=== PATIENT | female | born 1965 ===

== ENCOUNTER 2021-11-12 17:37 | Emergency (ER) | payer SELFPAY ==
--- NOTE | 2021-11-12 20:31 | Emergency Department Report ---
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 She states that she has been having knee swelling and has pain to the posterior knee. She denies any fall or injury. she denies ever having this in the past. States her pain is worse with ambulation. She denies any calf pain. No past medical history. No allergies to medications. She was given morphine and Zofran by EMS. - Related Data Previous Rx's Medication Instructions Recorded Last Taken Type Meloxicam [Mobic] 7.5 mg PO QDAY #14 tablet 11/12/21 Unknown Rx traMADoL [Ultram 50 MG tab] 50 mg PO Q6HR PRN #12 tablet 11/12/21 Unknown Rx Allergies Allergy/AdvReac Type Severity Reaction Status Date / Time No Known Allergies Allergy Unverified 11/12/21 17:43 ED Review of Systems ROS: Stated complaint: KNEE PAIN Other details as noted in HPI Comment: All other systems reviewed and negative ED Past Medical Hx - Medications Home Medications: Home Medications Medication Instructions Recorded Confirmed Last Taken Type Meloxicam [Mobic] 7.5 mg PO QDAY #14 tablet 11/12/21 Unknown Rx traMADoL [Ultram 50 MG tab] 50 mg PO Q6HR PRN #12 tablet 11/12/21 Unknown Rx ED Physical Exam - General Limitations: Language Barrier General appearance: alert, in no apparent distress - Head Head exam: Present: atraumatic, normocephalic - Eye Eye exam: Present: normal appearance - ENT ENT exam: Present: mucous membranes moist - Extremities Exam Extremities exam: Present: other (ttp to the left anterior and posterior knee, mild left calf ttp, mild edema to the left knee, FROM, neurovascularly intact, no skin changes) - Neurological Exam Neurological exam: Present: alert, oriented X3 - Psychiatric Psychiatric exam: Present: normal affect, normal mood - Skin Skin exam: Present: warm, dry, intact ED Course Vital Signs 11/12/21 21:41 Temperature 97.8 F Pulse Rate 74 Respiratory 96 H Rate Blood Pressure 117/66 [Left] ED Medical Decision Making - Radiology Data Radiology results: report reviewed Ordering Physician: EDGARDO AREVALO Date of Service: 11/12/21 Procedure(s): XR knee 3V LT Accession Number(s): [id number] cc: EDGARDO AREVALO Fluoro Time In Minutes: XR knee 3V LT INDICATION / CLINICAL INFORMATION: left knee pain and swelling. COMPARISON: None available. FINDINGS: BONES/JOINT(S): No acute fracture or subluxation. Mild tricompartmental osteoarthritis. SOFT TISSUES: No significant abnormality. ADDITIONAL FINDINGS: None. Signer Name: Mynor Turner MD Signed: 11/12/2021 8:38 PM Workstation Name: [id number] Transcribed By: KORY Dictated By: Mynor Turner MD Electronically Authenticated By: Mynor Turner MD Signed Date/Time: 11/12/212037 DD/ 37 TD/TT: Ordering Physician: EDGARDO AREVALO Date of Service: 11/12/21 Procedure(s): VL venous duplex LE LT Accession Number(s): [id number] cc: EDGARDO AREVALO DUPLEX DOPPLER LOWER EXTREMITY VEINS, LEFT INDICATION / CLINICAL INFORMATION: left posterior knee pain, left leg swelling. TECHNIQUE: Duplex doppler imaging was performed through the veins of the left lower extremity using venous compression and other maneuvers. COMPARISON: None available. FINDINGS: LEFT COMMON FEMORAL VEIN: Negative. LEFT FEMORAL VEIN: Negative. LEFT POPLITEAL VEIN: Negative. LEFT CALF VEINS: Negative. ADDITIONAL FINDINGS: None. IMPRESSION: 1. No sonographic evidence for DVT in the left lower extremity. Signer Name: Mynor Turner MD Signed: 11/12/2021 9:41 PM Workstation Name: [id number] Transcribed By: KORY Dictated By: Mynor Turner MD Electronically Authenticated By: Mynor Turner MD Signed Date/Time: 11/12/212140 DD/ 40 TD/TT: - Medical Decision Making Afghan interpretation by Glen, information systems security analyst who is present during entire patient encounter Patient is a 56-year-old female presents emergency room complaints of left knee pain that began 3 days ago. She states that she has been having knee swelling and has pain to the posterior knee. She denies any fall or injury. she denies ever having this in the past. States her pain is worse with ambulation. She denies any calf pain. No past medical history. No allergies to medications. She was given morphine and Zofran by EMS. on exam: ttp to the left anterior and posterior knee, mild left calf ttp, mild edema to the left knee, FROM, neurovascularly intact, no skin changes. No signs of cellulitis, septic joint or infection. No signs of acute arterial occlusion, patient has 2+ distal pulses. x-ray left knee BONES/JOINT(S): No acute fracture or subluxation. Mild tricompartmental osteoarthritis. SOFT TISSUES: No significant abnormality. ADDITIONAL FINDINGS: None. Doppler lower extremity 1. No sonographic evidence for DVT in the left lower extremity. Discussed all results with patient answer questions. Patient given prescription for medication. Advised patient Please take medication as prescribed as needed. Follow-up with a orthopedic doctor. Follow-up with your primary care doctor. Return to emergency room for any new or worsening symptoms. Critical care attestation.: If time is entered above; I have spent that time in minutes in the direct care of this critically ill patient, excluding procedure time. ED Disposition Clinical Impression: Knee swelling Knee pain Qualifiers: Chronicity: acute Laterality: left Qualified Code(s): M25.562 - Pain in left knee Disposition: 01 HOME / SELF CARE / HOMELESS Is pt being admited?: No Does the pt Need Aspirin: No Condition: Stable Instructions: Acute Knee Pain, Adult, [id number] Additional Instructions: Please take medication as prescribed as needed. Follow-up with a orthopedic doctor. Follow-up with your primary care doctor. Return to emergency room for any new or worsening symptoms. Prescriptions: Meloxicam [Mobic] 7.5 mg PO QDAY #14 tablet traMADoL [Ultram 50 MG tab] 50 mg PO Q6HR PRN #12 tablet PRN Reason: Pain , Severe (7-10) Referrals: PRIMARY ADA, [Primary Care Provider] - 3-5 Days DAYDAY DUNCAN MD [Staff Physician] - 3-5 Days Time of Disposition: 21:49 Print Language: MICRONESIAN
--- NOTE | 2021-11-12 20:43 | XRay Report ---
XR knee 3V LT INDICATION / CLINICAL INFORMATION: left knee pain and swelling. COMPARISON: None available. FINDINGS: BONES/JOINT(S): No acute fracture or subluxation. Mild tricompartmental osteoarthritis. SOFT TISSUES: No significant abnormality. ADDITIONAL FINDINGS: None. Signer Name: Mynor Turner MD Signed: 11/12/2021 8:38 PM Workstation Name: [id number]
[2021-11-12] MEDS ORDERED: HYDROcodone/ACETAMINOPHEN 5-325 MG TAB PO ONE (21:37)
[2021-11-12 21:43] VITALS: BP 117/66
--- NOTE | 2021-11-12 21:45 | Vascular Lab Report ---
DUPLEX DOPPLER LOWER EXTREMITY VEINS, LEFT INDICATION / CLINICAL INFORMATION: left posterior knee pain, left leg swelling. TECHNIQUE: Duplex doppler imaging was performed through the veins of the left lower extremity using venous compr ession and other maneuvers. COMPARISON: None available. FINDINGS: LEFT COMMON FEMORAL VEIN: Negative. LEFT FEMORAL VEIN: Negative. LEFT POPLITEAL VEIN: Negative. LEFT CALF VEINS: Negative. ADDITIONAL FINDINGS: None. IMPRESSION: 1. No sonographic evidence for DVT in the left lower extremity. Signer Name: Mynor Turner MD Signed: 11/12/2021 9:41 PM Workstation Name: [id number]
== END 2021-11-12 22:27 | disposition home or self-care (01) ==
LOC: EDSEX 17:37 → ED 17:37
DX: M25.562 Pain in left knee (principal)
CPT/HCPCS: 99284